=== PATIENT | female | born 1990 | race Caucasian/White ===

== ENCOUNTER 2017-03-15 11:39 | Emergency (ER) | payer SELFPAY ==
[~2017-03-15] VITALS: Ht 165.1 cm; Wt 84.8 kg
[~2017-03-15 11:39] MED LIST: LEVOTHYROXINE100 MCG PO; LEVOTHYROXINE75 MCG PO; NORCO 5/3251 TABLET PO; PEPCID20 MG PO
[2017-03-15 14:16] VITALS: BP 139/105
== END 2017-03-15 14:16 | disposition home or self-care (01) ==
LOC: EME 11:39
DX: N64.52 Nipple discharge (principal); E03.9 Hypothyroidism, unspecified
CPT/HCPCS: 76642; 84702; 99281; 99284